=== PATIENT | female | born 1975 | race Caucasian/White ===

== ENCOUNTER 2023-05-05 12:52 | Emergency (ER) | payer OTHER ==
[2023-05-05 13:01] VITALS: BP 125/77; PULSE 110; RESP 18; TEMP 98.2; BMI 25.6
[2023-05-05] MEDS: MECLIZINE HCL 25 MG TABLET (FP) PO ONE (14:15)
[2023-05-05] MEDS ORDERED: MECLIZINE HCL 25 MG TABLET (FP) ONE (14:19)
[2023-05-05] MEDS ORDERED: ACETAMINOPHEN 325 MG TABLET (FP) ONE (14:33)
[2023-05-05] MEDS ORDERED: METOCLOPRAMIDE HCL INJECTION 10 MG/2 ML VIAL ONE (14:33)
[2023-05-05 14:34] LABS: INR 0.99 (0.83-1.09); PROTHROMBIN TIME (PATIENT) 11.5 SEC (9.7-13.0)
[2023-05-05 14:36] LABS: POTASSIUM 4.1 mmol/L (3.5-5.1)
[2023-05-05 14:37] LABS: ACTIVATED PTT 29.1 SECONDS (25.2-36.5)
[2023-05-05 14:39] LABS: BASO % 1.1 % (0-2.0); CALCIUM 9.3 mg/dL (8.5-10.1); EOS % 2.5 % (0-4.5); HEMATOCRIT 28.1 % (32.4-45.2); HEMOGLOBIN 8.8 GM/dL (10.7-15.3); LYMPH % 26.3 % (8-40); MCHC 31.4 g/dl (32.0-36.0); MEAN CELL VOLUME 62.2 fl (80-96); MEAN PLT VOLUME 7.1 fl (7.5-11.1); MONO % 10.1 % (3.8-10.2); PLATELET COUNT 607 10^3/uL (134-434); RBC 4.52 M/mm3 (3.60-5.2); RDW 19.3 % (11.6-15.6); WHITE BLOOD COUNT 8.4 K/mm3 (4.0-10.0)
[2023-05-05 14:40] LABS: ALBUMIN 3.4 g/dl (3.4-5.0); BLOOD UREA NITROGEN 8.9 mg/dL (7-18)
[2023-05-05 14:43] LABS: CREATININE 0.5 mg/dL (0.55-1.3)
[2023-05-05 14:44] LABS: TOT PROT 7.1 g/dl (6.4-8.2)
[2023-05-05 14:49] LABS: MCH 19.5 pg (25.7-33.7)
[2023-05-05] MEDS: ACETAMINOPHEN 325 MG TABLET (FP) PO ONE (15:10)
[2023-05-05] MEDS: METOCLOPRAMIDE HCL INJECTION 10 MG/2 ML VIAL IVPUSH ONE (15:10)
[2023-05-05 15:32] LABS: ANISOCYTOSIS 3+; MACROCYTOSIS 0; ROULEAU 1+
== END 2023-05-05 15:50 | disposition home or self-care (01) ==
LOC: JER 12:52
DX: R53.1 Weakness (principal); R42 Dizziness and giddiness; R53.83 Other fatigue; R10.9 Unspecified abdominal pain; R19.7 Diarrhea, unspecified; Z20.822 Contact with and (suspected) exposure to COVID-19
CPT/HCPCS: 0241U-QW; 36415; 80053; 82272; 83690; 83735; 84439; 84443; 85025; 85610; 85730; 86850; 86900; 86901; 93005; 93010; 99284-25

== ENCOUNTER 2023-07-16 03:03 | Emergency (ER) | payer OTHER ==
[2023-07-16 03:11] VITALS: RESP 20; BMI 25.6
[2023-07-16] MEDS ORDERED: morphine SULFATE 4 MG/ML VIAL ONE (03:47)
[2023-07-16] MEDS ORDERED: HYDROmorphone HCl 2 MG/ML VIAL ONE ×2 (04:00→06:04)
[2023-07-16] MEDS ORDERED: ONDANSETRON 4 MG/2 ML VIAL ONE ×2 (04:05→06:04)
[2023-07-16] MEDS: ONDANSETRON 4 MG/2 ML VIAL IVPUSH ONE ×2 (04:11→06:07)
[2023-07-16] MEDS: morphine CARPU-JECT 4 MG/1 ML DISP.SYRIN IVPUSH ONE (04:11)
[2023-07-16] MEDS: HYDROmorphone HCl 2 MG/ML VIAL IVPUSH ONE ×2 (04:11→06:06)
[2023-07-16 04:20] LABS: BASO % 0.8 % (0-2.0); EOS % 1.8 % (0-4.5); HEMATOCRIT 41.7 % (32.4-45.2); HEMOGLOBIN 13.4 GM/dL (10.7-15.3); LYMPH % 25.5 % (8-40); MCH 23.5 pg (25.7-33.7); MCHC 32.2 g/dl (32.0-36.0); MEAN PLT VOLUME 7.2 fl (7.5-11.1); MONO % 9.2 % (3.8-10.2); NEUT % 62.7 % (42.8-82.8); PLATELET COUNT 488 10^3/uL (134-434); RBC 5.72 M/mm3 (3.60-5.2); RDW 30.4 % (11.6-15.6); WHITE BLOOD COUNT 11.7 K/mm3 (4.0-10.0)
[2023-07-16 04:37] LABS: POTASSIUM 3.9 mmol/L (3.5-5.1)
[2023-07-16 04:39] LABS: CALCIUM 9.5 mg/dL (8.5-10.1)
[2023-07-16 04:40] LABS: ALBUMIN 3.7 g/dl (3.4-5.0); BLOOD UREA NITROGEN 10.3 mg/dL (7-18)
[2023-07-16 04:43] LABS: CREATININE 0.4 mg/dL (0.55-1.3)
[2023-07-16 04:45] LABS: BILIRUBIN,TOTAL 1.4 mg/dL (0.2-1); TOT PROT 7.6 g/dl (6.4-8.2)
[2023-07-16 08:57] VITALS: TEMP 98
[2023-07-16] MEDS ORDERED: ACETAMINOPHEN INJECTION 100 ML IVPB ONE (09:21)
[2023-07-16] MEDS ORDERED: DEXAMETHASONE SOD PHOSPHATE 4 MG/1 ML VIAL ONE (09:24)
[2023-07-16] MEDS: ACETAMINOPHEN 1000 MG/100 ML BAG IVPB ONE (09:24)
[2023-07-16] MEDS: DEXAMETHASONE SOD PHOSPHATE 4 MG/1 ML VIAL IVPUSH ONE (09:33)
[2023-07-16 10:09] VITALS: BP 137/81; PULSE 66
== END 2023-07-16 10:45 | disposition home or self-care (01) ==
LOC: JER 03:03
PROC: 3E033NZ Introduction of Analgesics, Hypnotics, Sedatives into Peripheral Vein, Percutaneous Approach (ICD-10-PCS; principal; 2023-07-16)
PROC: 3E033NZ Introduction of Analgesics, Hypnotics, Sedatives into Peripheral Vein, Percutaneous Approach (ICD-10-PCS; 2023-07-16)
PROC: 3E033GC Introduction of Other Therapeutic Substance into Peripheral Vein, Percutaneous Approach (ICD-10-PCS; 2023-07-16)
PROC: 3E033GC Introduction of Other Therapeutic Substance into Peripheral Vein, Percutaneous Approach (ICD-10-PCS; 2023-07-16)
PROC: 3E033NZ Introduction of Analgesics, Hypnotics, Sedatives into Peripheral Vein, Percutaneous Approach (ICD-10-PCS; 2023-07-16)
PROC: 3E033GC Introduction of Other Therapeutic Substance into Peripheral Vein, Percutaneous Approach (ICD-10-PCS; 2023-07-16)
DX: G89.18 Other acute postprocedural pain (principal); M54.2 Cervicalgia
CPT/HCPCS: 36415; 72125-TC; 80053; 85025; 99284-25; J0131

== ENCOUNTER 2023-09-05 00:42 | Emergency (ER) | payer OTHER ==
[2023-09-05 01:03] VITALS: BP 116/71; PULSE 96; RESP 20; TEMP 98.5; BMI 26.3
[2023-09-05 01:32] LABS: PH,URINE 5.5 (5.0-8.0); URINE APPEARANCE TURBID; URINE BILIRUBIN NEGATIVE (NEGATIVE); URINE COLOR YELLOW; URINE GLUCOSE (UA) NEGATIVE (NEGATIVE); URINE KETONE NEGATIVE (NEGATIVE); URINE LEUK ESTERASE NEGATIVE (NEGATIVE); URINE NITRITE NEGATIVE (NEGATIVE); URINE PROTEIN TRACE (NEGATIVE); URINE UROBILINOGEN 0.2 mg/dL (0.2-1.0)
[2023-09-05] MEDS ORDERED: LIDOCAINE HCL 2% JELLY 6 ML TP ONE (02:51)
[2023-09-05] MEDS: LIDOCAINE HCL 2% JELLY 10 ML CARTRIDGE PR ONE (02:52)
[2023-09-05] MEDS: LIDOCAINE HCL 2% JELLY 10 ML CARTRIDGE UR ONE ×2 (02:52)
[2023-09-05] MEDS ORDERED: FLUCONAZOLE 150 MG TABLET PO ONE (03:16)
[2023-09-05] MEDS: FLUCONAZOLE 50 MG TABLET PO ONE (03:17)
== END 2023-09-05 03:17 | disposition home or self-care (01) ==
LOC: JER 00:42
DX: L29.2 Pruritus vulvae (principal); R30.0 Dysuria; N89.8 Other specified noninflammatory disorders of vagina
CPT/HCPCS: 36415; 81003; 87086; 87491; 87591; 87661; 99283-25

== ENCOUNTER 2023-12-15 21:35 | Emergency (ER) | payer OTHER ==
[2023-12-15 21:41] VITALS: TEMP 97.9; BMI 26.9
[2023-12-15] MEDS ORDERED: METOCLOPRAMIDE HCL INJECTION 10 MG/2 ML VIAL ONE (22:53)
[2023-12-15] MEDS ORDERED: ACETAMINOPHEN INJECTION 100 ML ONE (22:54)
[2023-12-15] MEDS ORDERED: ONDANSETRON 4 MG/2 ML VIAL ONE (22:54)
[2023-12-15] MEDS: METOCLOPRAMIDE HCL 10 MG TABLET (FP) PO ONE (23:02)
[2023-12-15] MEDS: ACETAMINOPHEN 1000 MG/100 ML BAG IVPB ONE (23:02)
[2023-12-15] MEDS: SODIUM CHLORIDE 1,000 ML IV STA (23:02)
[2023-12-15] MEDS: ONDANSETRON 4 MG/2 ML VIAL IVPUSH ONE (23:02)
[2023-12-16 00:28] VITALS: BP 134/77; PULSE 87; RESP 16
[2023-12-16 01:09] LABS: HIV INTERPRETATION NEGATIVE (NEGATIVE)
== END 2023-12-16 00:20 | disposition home or self-care (01) ==
LOC: JER 21:35
PROC: 3E033NZ Introduction of Analgesics, Hypnotics, Sedatives into Peripheral Vein, Percutaneous Approach (ICD-10-PCS; principal; 2023-12-15)
PROC: 3E033GC Introduction of Other Therapeutic Substance into Peripheral Vein, Percutaneous Approach (ICD-10-PCS; 2023-12-15)
PROC: 3E033GC Introduction of Other Therapeutic Substance into Peripheral Vein, Percutaneous Approach (ICD-10-PCS; 2023-12-15)
PROC: 3E0337Z Introduction of Electrolytic and Water Balance Substance into Peripheral Vein, Percutaneous Approach (ICD-10-PCS; 2023-12-15)
DX: R51.9 Headache, unspecified (principal); R11.2 Nausea with vomiting, unspecified
CPT/HCPCS: 36415; 86803; 87389; 99284-25; J0131

== ENCOUNTER 2024-06-27 01:13 | Emergency (ER) | payer OTHER ==
[2024-06-27 01:21] VITALS: BP 132/70; PULSE 108; RESP 24; TEMP 98.4; BMI 26.9
[2024-06-27] MEDS ORDERED: ALBUTEROL SO4 2.5/IPRATROPIUM 0.5 INH SOL 3 ML VIAL.NEB. NEB ONE (01:23)
[2024-06-27] MEDS: ALBUTEROL SO4 2.5/IPRATROPIUM 0.5 INH SOL 3 ML VIAL.NEB. NEB SCH (01:29)
[2024-06-27] MEDS: methylPREDNISolone NA SUCC 125 MG/2 ML VIAL IVPUSH ONE (01:31)
[2024-06-27] MEDS ORDERED: predniSONE 20 MG TABLET (UD) ONE (01:32)
[2024-06-27] MEDS: predniSONE 20 MG TABLET (UD) PO ONE (01:36)
== END 2024-06-27 02:12 | disposition home or self-care (01) ==
LOC: JER 01:13
PROC: 3E0F7GC Introduction of Other Therapeutic Substance into Respiratory Tract, Via Natural or Artificial Opening (ICD-10-PCS; principal; 2024-06-27)
DX: J45.901 Unspecified asthma with (acute) exacerbation (principal)
CPT/HCPCS: 99283-25